=== PATIENT | male | born 2005 | race Caucasian/White ===

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

== ENCOUNTER 2023-05-07 23:41 | Emergency (ER) | payer OTHER ==
[~2023-05-07] VITALS: Ht 177.8 cm; Wt 134.9 kg
[2023-05-08] MEDS: NS 1,000 ML IV ONE (01:13)
[2023-05-08] MEDS: dexAMETHasone 20MG/5ML VIAL IV ONE (01:14)
[2023-05-08] MEDS: AMPICILLIN SOD/SULBACTAM SOD 3 GM in D5W MINI-BAG PLUS 100 ML IV ONE (01:16)
[2023-05-08] MEDS ORDERED: CEPH500C PO (01:21)
[2023-05-08] MEDS ORDERED: DEXA4TA PO (01:27)
[2023-05-08 02:09] VITALS: BP 122/74; TEMP 98.2; O2SAT 100
== END 2023-05-08 02:11 | disposition home or self-care (01) ==
LOC: M ED 23:41
DX: J02.0 Streptococcal pharyngitis (principal); F17.200 Nicotine dependence, unspecified, uncomplicated; F10.10 Alcohol abuse, uncomplicated; Z79.2 Long term (current) use of antibiotics
CPT/HCPCS: 87880; 96365; 96375; 99283; J0295; J1100